=== PATIENT | male | born 1995 | race Caucasian/White ===

== ENCOUNTER 2025-07-05 16:24 | Emergency (ER) | payer SELFPAY ==
--- NOTE | ~2025-07-05 | XR_ITS ---
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 Findings: No acute fracture or malalignment. No significant degenerative changes. Soft tissues unremarkable. Impression: No acute fracture or malalignment. Reviewed, dictated and finalized at location P. MOTIVE ENGINEER Impression: No acute fracture or malalignment.
--- NOTE | ~2025-07-05 | XR_ITS ---
EXAMINATION: XR foot LT min 3V, 07/05/2025 16:49 PAINTER SPRING HISTORY: trauma COMPARISON: No comparisons available. Findings: No acute fracture or malalignment. No significant degenerative changes. Soft tissues unremarkable. Impression: No acute fracture or malalignment. Reviewed, dictated and finalized at location P. TER SPRING Impression: No acute fracture or malalignment.
[2025-07-05 16:27] VITALS: BP 154/83; PULSE 110; RESP 16; TEMP 37; O2SAT 98
--- NOTE | 2025-07-05 17:03 | ED.GENADULT ---
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 Patient did injure his left ankle. Patient denies striking his head denies loss of consciousness. Patient denies any proximal tib-fib pain. Patient denies any other pain or injury than the left lateral ankle. Patient arrived by EMS. Patient was in no apparent distress. Related Data Allergies Allergy/AdvReac Type Severity Reaction Status Date / Time No Known Allergies Allergy Verified 07/05/25 16:32 Review of Systems Review of Systems: All systems reviewed & are unremarkable except as noted in HPI and below Exam Narrative: APPEARANCE: Well appearing, no pain, no distress, well-nourished. HEAD: normocephalic, atraumatic. EYES: PERRLA/EOMI, conjunctivae clear. NOSE: Normal no drainage EARS:TMS clear with good light reflex. THROAT: Pharynx clear, no exudate. NECK: Supple. No adenopathy, no masses. RESPIRATORY: Airway patent, respirations nonlabored. Clear to auscultation bilaterally, no rales, rhonchi, wheezing. CARDIOVASCULAR: Regular rate and rhythm without murmurs rubs or gallops. ABDOMINAL: Soft, nontender, nondistended, normal bowel sounds MUSCULOSKELETAL: Lateral ankle tenderness to palpation, no deformity, no significant edema NEURO: Alert. Cranial nerves II through XII intact. Good gait. Good coordination SKIN: Warm, dry. Normal Color Course Vital Signs Vital signs: Vital Signs Temperature 98.6 F 07/05/25 16:27 Pulse Rate 110 H 07/05/25 16:27 Respiratory Rate 16 07/05/25 16:27 Blood Pressure 154/83 H 07/05/25 16:27 Pulse Oximetry 98 07/05/25 16:27 Oxygen Delivery Room Air 07/05/25 16:27 Temperature 98.6 F 07/05/25 16:27 Pulse Rate 100 07/05/25 18:00 Respiratory Rate 16 07/05/25 18:00 Blood Pressure 152/82 H 07/05/25 18:00 Pulse Oximetry 98 07/05/25 18:00 Oxygen Delivery Room Air 07/05/25 16:27 Medical Decision Making [facility] Narrative Medical decision making narrative: 30-year-old male present to the emergency department for evaluation for left ankle pain after falling from his truck. Patient has no significant deformity on exam. X-ray was negative for acute fracture dislocation. patient was updated on the results of the x-ray. Patient is provided Raul wrap and crutches for increased transport and limited weight-bearing. Patient was encouraged of close follow-up with primary care physician. Patient's primary care physician is located in the [facility]. All questions concerns were addressed patient was comfortable the plan for discharge and close follow-up. Differential Diagnosis Differential Diagnosis: Ankle fracture, ankle dislocation, ankle sprain Vital Signs Vital Signs: Vital Signs Temperature 98.6 F 07/05/25 16:27 Pulse Rate 110 H 07/05/25 16:27 Respiratory Rate 16 07/05/25 16:27 Blood Pressure 154/83 H 07/05/25 16:27 Pulse Oximetry 98 07/05/25 16:27 Oxygen Delivery Room Air 07/05/25 16:27 Temperature 98.6 F 07/05/25 16:27 Pulse Rate 100 07/05/25 18:00 Respiratory Rate 16 07/05/25 18:00 Blood Pressure 152/82 H 07/05/25 18:00 Pulse Oximetry 98 07/05/25 18:00 Oxygen Delivery Room Air 07/05/25 16:27 Imaging Data Attestation: I personally reviewed and interpreted this imaging study as follows: My impression: ankle x-ray: No acute fracture or dislocation. Foot x-ray: No acute fracture dislocation Discharge Plan Discharge Clinical Impression: Ankle sprain and strain Patient Disposition: Home Condition: Stable Instructions: Antibiotic Form, Ankle Sprain (ED), Crutch Instructions (ED) Additional Instructions: Raul wrap for comfort and increased stability, crutches for nonweightbearing. Tylenol and ibuprofen for pain control. Have close follow-up with your primary care physician. Patient Language: [place]i Follow-up/Referrals: PHYSICIAN,[facility] ARCHITECT [Primary Care Provider, Internal Medicine]
[2025-07-05 17:15] VITALS: BP 139/80; PULSE 68; RESP 16; O2SAT 99
[2025-07-05 18:00] VITALS: BP 152/82; PULSE 100; RESP 16; O2SAT 98
== END 2025-07-05 18:01 | disposition home or self-care (01) ==
PROVIDERS: Emergency Provider Emergency Medicine
DX: S93.402A Sprain of unspecified ligament of left ankle, initial encounter (principal); S96.912A Strain of unspecified muscle and tendon at ankle and foot level, left foot, initial encounter; W17.89XA Other fall from one level to another, initial encounter
CPT/HCPCS: 73610; 73630; 99283